=== PATIENT | female | born 1985 | race Caucasian/White ===

== ENCOUNTER 2018-02-23 09:15 | Emergency (ER) | payer OTHER ==
[~2018-02-23] VITALS: Ht 152.4 cm; Wt 72.7 kg
[2018-02-23 09:16] VITALS: BP 127/84
[2018-02-23 09:43] LABS: BASOPHILS % (AUTO) 0.2 % (0-1); EOSINOPHILS # (AUTO) 0.2 X10'3 (0-0.9); EOSINOPHILS % (AUTO) 2.6 % (0-6); HEMATOCRIT 39.3 % (35.0-45.0); HEMOGLOBIN 13.7 g/dl (12.0-16.0); LYMPHOCYTES # (AUTO) 2.4 X10'3 (1.1-4.8); MEAN CORPUSCULAR HGB CONC 34.9 % (33.0-36.5); MEAN CORPUSCULAR VOLUME 83.1 FL (78-98); MEAN PLATELET VOLUME 9.3 FL (7.4-10.4); MONOCYTES # (AUTO) 0.6 X10'3 (0-0.9); MONOCYTES % (AUTO) 6.8 % (2-12); NEUTROPHILS # (AUTO) 5.6 X10'3 (1.8-7.7); NEUTROPHILS % (AUTO) 63.4 % (42-75); PLATELET COUNT 231 X10'3 (140-440); RED BLOOD COUNT 4.74 X10'6 (4.20-5.60); RED CELL DISTRIBUTION WIDTH 14.3 % (11.5-14.5); WHITE BLOOD COUNT 8.8 X10'3 (4.5-11.0)
[2018-02-23 09:46] LABS: COLOR,URINE YELLOW (Yellow); GLUCOSE, URINE NEGATIVE (Neg); KETONES,URINE NEGATIVE (Neg); LEUKOCYTE ESTERASE ,URINE NEGATIVE (Neg); NITRITES, URINE NEGATIVE (Neg); OCCULT BLOOD,URINE LARGE (Neg); PROTEIN,URINE NEGATIVE (Neg); UROBILINOGEN,URINE 0.2 E.U/dL (0.2-1.0)
[2018-02-23 09:47] LABS: URINE HCG NEGATIVE (NEG)
[2018-02-23 09:52] LABS: CLARITY,URINE SLIGHTLY CLOUDY (Clear); UA COLLECTION TYPE CLN CATCH MIDSTREAM
[2018-02-23 09:53] LABS: WBC,URINE 0-4 /HPF (0-4)
[2018-02-23 09:54] LABS: BACTERIA,URINE FEW /HPF (Neg); MUCUS STRANDS MODERATE /LPF (Neg); SQUAMOUS EPITHELIAL CELL,UR FEW /LPF (FEW)
[2018-02-23 09:58] LABS: ALANINE AMINOTRANSFERASE 27 U/L (12-78); ALBUMIN 3.2 G/DL (3.4-5.0); ALBUMIN/GLOBULIN RATIO 0.9 (1.1-1.5); ALKALINE PHOSPHATASE 66 IU/L (46-116); ANION GAP 7 (8-16); ASPARTATE AMINO TRANSFERASE 17 U/L (10-37); BILIRUBIN,TOTAL 0.3 MG/DL (0.1-1.0); BLOOD UREA NITROGEN 15 MG/DL (7-18); CALCIUM 8.3 MG/DL (8.5-10.1); CHLORIDE 104 MMOL/L (99-107); CREATININE 0.79 MG/DL (0.40-0.90); GLUCOSE 107 MG/DL (70-104); POTASSIUM 3.7 MMOL/L (3.5-5.1); SODIUM 139 MMOL/L (135-145); TOTAL CARBON DIOXIDE 27.7 MMOL/L (24-32); TOTAL PROTEIN 6.9 G/DL (6.4-8.2); eGFR 85 ML/MIN
[2018-02-23 10:03] LABS: BETA HCG,QUANTITATIVE 16 mIU/ml
== END 2018-02-23 10:44 | disposition home or self-care (01) ==
LOC: ER 09:15
DX: O20.0 Threatened abortion (principal); Z3A.01 Less than 8 weeks gestation of pregnancy; Z88.0 Allergy status to penicillin
CPT/HCPCS: 36415; 80053; 81001; 81025; 84702; 85025; 99284

== ENCOUNTER 2020-04-19 18:45 | Emergency (ER) | payer MEDICAID ==
[~2020-04-19] VITALS: Ht 152.4 cm; Wt 80.3 kg
[2020-04-19 20:53] LABS: URINE HCG POSITIVE (NEG)
[2020-04-19] MEDS ORDERED: acetaminophen 325mg tablet PO ONE (21:00)
[2020-04-19 21:04] LABS: BASOPHILS % (AUTO) 0.2 % (0-1); EOSINOPHILS # (AUTO) 0.1 X10'3 (0-0.9); EOSINOPHILS % (AUTO) 0.5 % (0-6); HEMATOCRIT 39.9 % (35.0-45.0); HEMOGLOBIN 13.3 g/dl (12.0-16.0); LYMPHOCYTES # (AUTO) 1.6 X10'3 (1.1-4.8); LYMPHOCYTES % (AUTO) 13.9 % (21-51); MEAN CORPUSCULAR HEMOGLOBIN 28.2 PG (27.0-31.0); MEAN CORPUSCULAR HGB CONC 33.3 g/dL (33.0-36.5); MEAN CORPUSCULAR VOLUME 84.7 FL (78-98); MEAN PLATELET VOLUME 9.6 FL (7.4-10.4); MONOCYTES # (AUTO) 0.6 X10'3 (0-0.9); NEUTROPHILS # (AUTO) 9.2 X10'3 (1.8-7.7); NEUTROPHILS % (AUTO) 80.4 % (42-75); PLATELET COUNT 212 X10'3 (140-440); RED BLOOD COUNT 4.71 X10'6 (4.20-5.60); RED CELL DISTRIBUTION WIDTH 14.4 % (11.5-14.5); WHITE BLOOD COUNT 11.5 X10'3 (4.5-11.0)
[2020-04-19 21:08] LABS: CLARITY,URINE SLIGHTLY CLOUDY (Clear); COLOR,URINE YELLOW (Yellow); GLUCOSE, URINE NEGATIVE (Neg); KETONES,URINE NEGATIVE (Neg); LEUKOCYTE ESTERASE ,URINE NEGATIVE (Neg); NITRITES, URINE NEGATIVE (Neg); OCCULT BLOOD,URINE NEGATIVE (Neg); PROTEIN,URINE NEGATIVE (Neg); UROBILINOGEN,URINE 0.2 E.U/dL (0.2-1.0)
[2020-04-19 21:09] LABS: UA COLLECTION TYPE CLN CATCH MIDSTREAM
[2020-04-19 21:14] LABS: ALANINE AMINOTRANSFERASE 61 U/L (12-78); ALBUMIN 3.3 G/DL (3.4-5.0); ALBUMIN/GLOBULIN RATIO 0.7 (1.1-1.5); ALKALINE PHOSPHATASE 42 IU/L (46-116); ANION GAP 8 (8-16); ASPARTATE AMINO TRANSFERASE 36 U/L (10-37); BILIRUBIN,TOTAL 0.6 MG/DL (0.1-1.0); BLOOD UREA NITROGEN 12 MG/DL (7-18); CHLORIDE 98 MMOL/L (99-107); CREATININE 0.63 MG/DL (0.40-0.90); GLUCOSE 90 MG/DL (70-104); POTASSIUM 3.4 MMOL/L (3.5-5.1); SODIUM 135 MMOL/L (135-145); TOTAL CARBON DIOXIDE 28.8 MMOL/L (24-32); TOTAL PROTEIN 8.1 G/DL (6.4-8.2); eGFR > 90 ML/MIN
[2020-04-19] MEDS ORDERED: cephalexin 500mg capsule PO ONE (21:40)
[2020-04-19] MEDS ORDERED: clindamycin 600mg/D5W 50ml 50 ML IV ONE (21:40)
[2020-04-19 21:41] LABS: BACTERIA,URINE 2+ /HPF (Neg); MUCUS STRANDS MANY /LPF (Neg); RBC,URINE NONE SEEN /HPF (0-2); SQUAMOUS EPITHELIAL CELL,UR MANY /LPF (FEW); WBC,URINE 0-4 /HPF (0-4)
--- NOTE | 2020-04-19 22:18 | NUR ---
Spoke with the provider and the pharmacist about the Clindamycin dose and the safety of the antibiotic during first trimester of . Pharmacist ordered the medication to not be given at this time. Dr. Wilcox and JAGJIT Baker aware of the above.
[2020-04-19 22:33] VITALS: BP 118/86
[2020-04-19] MEDS ORDERED: CEPH250T PO (22:35)
--- NOTE | 2020-04-19 22:42 | NUR ---
ATTEMPT MADE TO CONTACT PT AFTER SHE LEFT ED WITHOUT FINISHING CARE/ TREATMENT. JAGJIT DIANA WROTE PRESCRIPTION FOR ANTIBIOTIC. UNABLE TO CONTACT PATIENT.
== END 2020-04-19 22:36 | disposition home or self-care (01) ==
LOC: ER 18:46
DX: M70.22 Olecranon bursitis, left elbow (principal); M25.522 Pain in left elbow; M79.89 Other specified soft tissue disorders; Z88.0 Allergy status to penicillin; Z79.2 Long term (current) use of antibiotics; Y93.9 Activity, unspecified
CPT/HCPCS: 36415; 80053; 81001; 81025; 85025; 87040; 99283

== ENCOUNTER 2023-01-13 12:21 | Emergency (ER) | payer MEDICAID ==
[~2023-01-13] VITALS: Ht 152.4 cm; Wt 65.0 kg
[~2023-01-13 12:21] MED LIST: BUPR1FIL3 SL
[2023-01-13 12:48] VITALS: BP 153/93
--- NOTE | 2023-01-13 12:52 | NUR ---
Met with patient for the [facility] program. Patient unable to get an appt yet with [facility]. Just needs another week of Suboxone. I talked to Diego he will see patient.
[2023-01-13] MEDS ORDERED: BUPR1FIL3 SL (13:29)
== END 2023-01-13 14:03 | disposition home or self-care (01) ==
LOC: ER 12:22
DX: F19.10 Other psychoactive substance abuse, uncomplicated (principal); Z76.0 Encounter for issue of repeat prescription; Z88.0 Allergy status to penicillin; Z79.899 Other long term (current) drug therapy
CPT/HCPCS: 99281

== ENCOUNTER 2023-03-31 13:42 | Emergency (ER) | payer MEDICAID ==
[~2023-03-31] VITALS: Ht 152.4 cm; Wt 66.6 kg
[2023-03-31 13:52] VITALS: BP 119/77; PULSE 66; RESP 16; TEMP 97.7; O2SAT 99
[2023-03-31] MEDS ORDERED: BUPR1FIL3 SL (13:58)
--- NOTE | 2023-03-31 13:59 | NUR ---
Met with patient for the [facility] Program. Patient has appointment at [facility] next week. Patient requesting Suboxone until appt. I talked to Margie she will give RX for Suboxone.
== END 2023-03-31 14:21 | disposition home or self-care (01) ==
LOC: ER 13:43
DX: F11.10 Opioid abuse, uncomplicated (principal); Z76.0 Encounter for issue of repeat prescription; Z88.0 Allergy status to penicillin
CPT/HCPCS: 99281

== ENCOUNTER 2023-04-07 13:11 | Emergency (ER) | payer MEDICAID ==
[~2023-04-07] VITALS: Ht 152.4 cm; Wt 67.2 kg
[2023-04-07 13:35] VITALS: BP 121/77; PULSE 68; RESP 18; TEMP 98.4; O2SAT 100
[2023-04-07] MEDS ORDERED: BUPR1FIL3 SL (15:13)
== END 2023-04-07 16:07 | disposition home or self-care (01) ==
LOC: ER 13:12
DX: F11.20 Opioid dependence, uncomplicated (principal); Z88.0 Allergy status to penicillin; Z79.899 Other long term (current) drug therapy
CPT/HCPCS: 99281; 99283

== ENCOUNTER 2023-05-04 22:39 | Emergency (ER) | payer MEDICAID ==
[~2023-05-04] VITALS: Ht 152.4 cm; Wt 72.7 kg
[2023-05-04 22:41] VITALS: BP 142/96; PULSE 79; RESP 18; TEMP 98.6; O2SAT 100
[2023-05-05] MEDS ORDERED: cephalexin 250mg capsule PO ONE (02:35)
[2023-05-05] MEDS ORDERED: CEPH250T PO (02:37)
== END 2023-05-05 02:53 | disposition home or self-care (01) ==
LOC: ER 22:40
DX: L08.9 Local infection of the skin and subcutaneous tissue, unspecified (principal); Z88.0 Allergy status to penicillin
CPT/HCPCS: 99283; A6449

== ENCOUNTER 2023-07-11 16:49 | Emergency (ER) | payer MEDICAID ==
[~2023-07-11] VITALS: Ht 152.4 cm; Wt 54.5 kg
[2023-07-11 17:00] VITALS: BP 137/86; PULSE 98; RESP 18; TEMP 97; O2SAT 98
[2023-07-11] MEDS ORDERED: buprenorphine/naloxone 8MG-2MG SUBlingual film SL ONE (17:10)
[2023-07-11] MEDS ORDERED: BUPR1FIL3 SL (17:56)
== END 2023-07-11 18:15 | disposition home or self-care (01) ==
LOC: ER 16:50
DX: F11.10 Opioid abuse, uncomplicated (principal); Z76.0 Encounter for issue of repeat prescription; Z88.0 Allergy status to penicillin
CPT/HCPCS: 99281

== ENCOUNTER 2025-03-07 13:41 | Emergency (ER) | payer MEDICAID ==
[~2025-03-07] VITALS: Ht 152.4 cm; Wt 83.4 kg
[2025-03-07 13:48] VITALS: BP 135/88; PULSE 80; RESP 16; O2SAT 100
[2025-03-07] MEDS ORDERED: SULF1TAB45 PO (15:36)
--- NOTE | 2025-03-07 15:38 | Physician Documentation ---
History of Present Illness ~ Chief Complaint: Multiple Medical Complaints Stated Complaint: WOUNDS AND MED REQUEST Time Seen by MD: 14:49 Primary Medical Doctor: FRANCOIS Tetanus within 5 years?: Yes Medication Reconciliation Allergies: Coded Allergies: Penicillins (Verified Allergy, Unknown, 03/07/25) Past Medical History Past Medical History: No Pertinent History Past Surgical History: noncontributory Alcohol Use: None Drug Use: none Lives In: Home Review of Systems All Other Systems at this time: Reviewed and Negative ROS As stated above in the HPI, otherwise all systems are reviewed and negative. Physical Exam Vital Signs: Temperature: 97.0, Source: Temporal, Heart Rate: 80, Respiratory Rate: 16, BP: 135/88, Pulse Oximetry: 100, Weight: 83.400 Oxygen Flow Rate: 0 Physical Exam General: Alert, no apparent distress. Extremities: Normal range of motion, no deformity. lower right foot has notable erythema superior aspect approx 6cm with raised central sore Neurologic: Oriented x4. Psychiatric: Normal mood and affect. Skin: Normal color, warm and dry. No edema, no ecchymosis. Progress Results/Orders Results/Orders Completed Orders - JIMMY LOMAS NP Sulfamethox/Trimetho. Ds Tab (Septra Ds (03/07/25 15:30) Vital Signs 03/07/25 13:48 Temp 97.0 Pulse 80 Resp 16 B/P (MAP) 135/88 Pulse Ox 100 O2 Flow Rate 0 Medical Decision Making Findings Patient presents with a likely cellulitic infection on her lower right extremity. Going to treat her empirically with Bactrim due to high likelihood of MRSA infection Departure Disposition: 01 HOME / SELF CARE / HOMELESS Impression: Primary Impression: Opiate addiction Additional Impression: Infection of skin and subcutaneous tissue Condition: Stable Discharge Instructions: Cellulitis, Adult, [id number] Referrals: NO PRIMARY CARE PROVIDER (PCP) Prescriptions Sulfamethoxazole/Trimethoprim (Septra Ds Tab) 800 Mg/160 Mg Tablet 1 TAB PO Q12H for 10 Days, #20 TAB Prov: JIMMY LOMAS NP 03/07/25 Education Educated: Patient Educated regarding: diagnosis Signature Scribe Signature: mn Attestation: Scribed for Jimmy Lomas [employer] by Jimmy Yuan NP . 03/07/25 15:37 JIMMY LOMAS NP Mar 07, 2025 15:38
[2025-03-07] MEDS: sulfamethoxazole/trimethoprim DS (800/160mg) tablet PO ONE (16:09)
[2025-03-07 16:15] VITALS: TEMP 97
== END 2025-03-07 16:18 | disposition home or self-care (01) ==
LOC: ER 13:42
DX: F11.20 Opioid dependence, uncomplicated (principal); L08.9 Local infection of the skin and subcutaneous tissue, unspecified; Z76.0 Encounter for issue of repeat prescription; Z88.0 Allergy status to penicillin
CPT/HCPCS: 99283